=== PATIENT | female | born 1980 | race Caucasian/White ===

== ENCOUNTER 2018-07-27 09:53 | Inpatient (IN) ==
[2018-07-27] MEDS ORDERED: LIDOCAINE HCL 50 ML VIAL PERI PRN (10:00)
[2018-07-27] MEDS ORDERED: OXYTOCIN/DEXTROSE 5%-WATER 30 UNITS/500 ML BAG IV ONE (10:00)
[2018-07-27] MEDS ORDERED: NALBUPHINE HCL 10 MG/ML AMPUL IV PRN ×2 (10:00)
[2018-07-27] MEDS ORDERED: RINGER'S SOLUTION,LACTATED 1,000 ML IV ONE (10:00)
[2018-07-27] MEDS ORDERED: ONDANSETRON HCL/PF 2 MG/ML VIAL IV PRN (10:00)
[2018-07-27] MEDS ORDERED: PENICILLIN G POTASSIUM 5 MILLIONUNT in DEXTROSE 5 % IN WATER 100 ML IV ONE ×2 (12:45)
[2018-07-27] MEDS: RINGER'S SOLUTION,LACTATED 1,000 ML IV PRN ×2 (13:19→23:20)
--- NOTE | 2018-07-27 13:35 | HP ---
Chief Complaint - Chief Complaint Date of Service: 07/27/18 Time of Service: 13:00 Chief Complaint: Induction of labor History of Present Illness: The patient presented to the office today for a routine obstetrical visit. Her BP was found to be elevated in the mild range but she was asymptomatic. She reported contractions. She denied vaginal bleeding or loss of fluid. Fetus is active. Medical History (Last Updated 01/03/18 @ 08:19 by Gregoria Mendiola RN) Heartburn Onset Date: 02/22/14 Obesity Onset Date: 05/29/16 Shingles Onset Date: ~06/2013 during Migraine Onset Date: Unknown without aura Surgical History: Surgical History (Last Updated 01/03/18 @ 08:19 by Gregoria Mendiola RN) Hx laparoscopic cholecystectomy Onset Date: ~06/2007 Family History: Family History (Last Updated 01/03/18 @ 08:22 by Gregoria Mendiola RN) Mother Hypertension Grandfather , Paternal CHF (congestive heart failure) Grandmother , Paternal Ovarian cancer Family/Other Congenital heart defect Spina bifida Social History: Preferred Language Slovenian Smoking Status Former smoker (Last Updated 07/27/18 @ 11:50 by Shelly Dunbar MD) No Social History Section defined Review Of Systems (GEN) - Review of Systems EENTM: Present: No Symptoms Reported Respiratory: Present: No Symptoms Reported Cardiac: Present: No Symptoms Reported Abdominal: Present: No Symptoms Reported Genitourinary: Present: No Symptoms Reported Musculoskeletal: Present: No Symptoms Reported Neurological: Present: No Symptoms Reported Skin: Present: No Symptoms Reported Endocrine: Present: No Symptoms Reported Allergies/Adverse Reactions: Allergies Allergy/AdvReac Type Severity Reaction Status Date / Time No Known Allergies Allergy Verified 07/27/18 09:12 Home Medications: HOME MEDICATIONS Vits96/Iron Fum/Folic [ S] 1 tab PO DAILY 09/19/14 [Last Taken 09/18/14 21:00] blood sugar diagnostic strips See Dose Instructions .ROUTE .MEDSUPPLY #100 ea 05/18/18 [Last Taken Unknown] blood-glucose meter kit See Dose Instructions .ROUTE .MEDSUPPLY #1 ea 05/18/18 [Last Taken Unknown] lancets 33 gauge See Dose Instructions .ROUTE .MEDSUPPLY #100 ea 05/18/18 [Last Taken Unknown] ferrous sulfate 325 mg (65 mg iron) tablet 325 mg PO DAILY tab 06/15/18 [Last Taken Unknown] Exam - Exam Vital Signs: BP 156/96 Temperature: 36.8 Celcius HR 73 O2 sat 99% RA Constitutional: Present: Alert, Oriented x3, Cooperative, No distress Respiratory: Present: lungs clear, normal breath sounds Cardiovascular/Chest: Present: regular rate, rhythm, no murmur Abdomen: Present: soft, nontender Extremity: Present: non-tender, no calf tenderness Skin Exam: Present: normal color, warm/dry, no cyanosis Appearance: Present: appropriate appearance Eye contact: Present: cooperative, good eye contact, normal speech Thoughts: Present: normal thought pattern Diagnostic Studies: Abnormal Lab Results 07/27/18 Range/Units 10:45 U Random Total Protein 13.0 H (0-12) mg/dL Laboratory Results Ur Random Creatinine 116.5 mg/dL (60-200) 07/27/18 10:45 U Random Total Protein 13.0 mg/dL (0-12) H 07/27/18 10:45 U [place] Prot/Creat Ratio 112 mg/gm (0-199) 07/27/18 10:45 Assessment/Plan - Narrative Narrative: 38 yo at 39w0d with: 1. GHTN: BP in the mild range, asymptomatic 2. GDM: normal FSBS on admission to L&D. Discontinue FSBS 3. GBS positive: intrapartum prophylaxis Proceed with IOL with pitocin.
[2018-07-27 13:42] LABS: Cocaine Ur Negative (NEGATIVE); Urine Barbiturate Negative (NEGATIVE); Urine Benzodiazepines Negative (NEGATIVE); Urine Opiates Negative (NEGATIVE); Urine PCP Negative (NEGATIVE); Urine THC Negative (NEGATIVE)
[2018-07-27] MEDS: PENICILLIN G POTASSIUM 2.5 MILLIONUNT in DEXTROSE 5 % IN WATER 100 ML IV SCH ×4 (17:16→21:06)
[2018-07-28] MEDS: PENICILLIN G POTASSIUM 2.5 MILLIONUNT in DEXTROSE 5 % IN WATER 100 ML IV SCH ×6 (01:03→09:17)
[2018-07-28] MEDS ORDERED: ONDANSETRON HCL/PF 2 MG/ML VIAL IV PRN (09:26)
[2018-07-28] MEDS ORDERED: BUPIVACAINE HCL/0.9 % NACL/PF 250 ML EP PRN (09:26)
[2018-07-28] MEDS ORDERED: NALOXONE HCL 1 MG/1 ML SYRG IV PRN (09:26)
[2018-07-28] MEDS ORDERED: fentaNYL CITRATE/PF 50 MCG/ML AMPUL IT SCH (09:30)
--- NOTE | 2018-07-28 09:34 | PN ---
Progess Note - Interim Date: 07/28/18 Time: 07:30 Narrative: 07/28/18 09:33 Pt without complaints AROM for clear fluid FHT cat 1
[2018-07-28] MEDS ORDERED: LIDOCAINE HCL/EPINEPHRINE 20 ML VIAL ONE (10:31)
--- NOTE | 2018-07-28 11:00 | ANES ---
Anesthesia Pre Procedure Eval Vitals/Labs: Last Vital Signs Temp 36.8 C 07/27/18 13:00 Pulse 73 07/27/18 13:00 Resp 20 07/27/18 13:00 BP 156/96 H 07/27/18 13:00 Pulse Ox 97 07/27/18 13:00 HOME MEDICATIONS Vits96/Iron Fum/Folic [ S] 1 tab PO DAILY 09/19/14 [Last Taken 07/26/18 22:00] ferrous sulfate 325 mg (65 mg iron) tablet 325 mg PO DAILY tab 06/15/18 [Last Taken 07/26/18 22:00] Acetaminophen [Tylenol] 1,000 mg PO Q8H PRN 07/27/18 [Last Taken Unknown] diphenhydrAMINE HCL [Benadryl] 25 mg PO HS PRN 07/27/18 [Last Taken Unknown] Allergies/Adverse Reactions: Allergies Allergy/AdvReac Type Severity Reaction Status Date / Time No Known Allergies Allergy Verified 07/27/18 09:12 - Planned Procedure Planned Procedure: ELEV BP DELIVERY Medication List Reviewed:: Yes Allergies Verified: Yes Medical History (Last Reviewed 07/28/18 @ 11:00 by Dionte Jj CRNA) Heartburn Onset Date: 02/22/14 Obesity Onset Date: 05/29/16 Shingles Onset Date: ~06/2013 during Migraine Onset Date: Unknown without aura Surgical History (Last Reviewed 07/28/18 @ 11:00 by Dionte Jj CRNA) Hx laparoscopic cholecystectomy Onset Date: ~06/2007 Family History (Last Reviewed 07/28/18 @ 11:00 by Dionte Jj CRNA) Mother Hypertension Grandfather , Paternal CHF (congestive heart failure) Grandmother , Paternal Ovarian cancer Family/Other Congenital heart defect Spina bifida - Family Anesthesia History Family History:: no untoward family reactions to anesthesia - Airway/Neck/Teeth Within Normal Limits:: Yes Teeth Condition: intact Neck Exam: limited range of motion Mallampatti Score: 3 Thyromental (T-M) distance: > 6 cm Mandibulo Hyoid distance: > 3 cm - Respiratory Respiratory Physical: lungs clear Smoking Status: Never smoker Sleep Apnea currently treated: No Sleep Apnea by current assessment: No - Cardiovascular Tolerate Activity: Fair Heart Sounds: S1 & S2, Regular - Anesthesia Assessment and Plan ASA Class: PS, II, E Anesthesia Type Plan: Epidural Planned difficult intubation/equipment available: No
--- NOTE | 2018-07-28 11:01 | ANES ---
Post Anesthesia Assessment - Vital Signs Vitals: Last Vital Signs Temp 36.8 C 07/27/18 13:00 Pulse 73 07/27/18 13:00 Resp 20 07/27/18 13:00 BP 156/96 H 07/27/18 13:00 Pulse Ox 97 07/27/18 13:00 Airway Patency: Normal - Mental Status Level Of Consciousness: Awake - Pain Level Pain Score: 2 - N/V Assessment Nausea/Vomiting Presence: None Dehydration:: No
--- NOTE | 2018-07-28 11:01 | ANES ---
Post Anesthesia Discharge - Transfer of Care Transfer of Care handoff given to nurse: Yes - Anesthesia Post Op Note Anesthesia Post Op Note: Care transferred to OB RN
[2018-07-28] MEDS ORDERED: GLYCERIN/WITCH HAZEL LEAF 40 APPL BOX TP PRN (11:50)
[2018-07-28] MEDS ORDERED: SENNOSIDES 8.6 MG TABLET PO PRN (11:50)
[2018-07-28] MEDS ORDERED: BISACODYL 10 MG SUPP.RECT RC PRN (11:50)
[2018-07-28] MEDS ORDERED: HYDROcodone/ACETAMINOPHEN 1 EACH TABLET PO PRN (11:50)
[2018-07-28] MEDS ORDERED: diphenhydrAMINE HCL 25 MG CAPSULE PO PRN (11:50)
[2018-07-28] MEDS ORDERED: OXYTOCIN/DEXTROSE 5%-WATER 30 UNITS/500 ML BAG IV ONE (11:50)
[2018-07-28] MEDS ORDERED: HYDROCORTISONE 30 APPL TUBE TP PRN (11:50)
[2018-07-28] MEDS ORDERED: BENZOCAINE/MENTHOL 81 SPRAY CAN TP PRN (11:50)
--- NOTE | 2018-07-28 12:05 | OR ---
Operative Report - Dictated Report Narrative: Date of delivery: 07/28/2018 Time of delivery: 1136 weight: 3275 grams APGARS 8/9 Procedure: normal spontaneous vaginal delivery Description of the procedure: The patient is a 38 year old @ 39w 1d who presented to labor and delivery for a medical induction of labor due to GDM, GHTN, and AMA. She was induced with pitocin and AROM. She progressed to complete dilation after receiving an epidural. She delivered a viable female infant in the direct OA presentation. There was a nuchal cord that was reduced after delivery. Cord clamping was delayed for 60 seconds. The placenta was delivered by expression and appeared intact. There were no lacerations noted. EBL: 50 mL Lacerations: none Complications: none Definition: * The number of deliveries resulting in a live the patient experienced prior to current hospitalization * The previous delivery of live twins or any live multiple gestation is considered one live event. *If primagravida or nulliparous is documented select zero for the number of previous live births. Live Births: 3
[2018-07-28] MEDS: IBUPROFEN 800 MG TABLET PO PRN (20:06)
[2018-07-29] MEDS: DOCUSATE SODIUM 100 MG CAPSULE PO SCH ×3 (00:34→21:02)
[2018-07-29] MEDS: HYDROcodone/ACETAMINOPHEN 1 EACH TABLET PO PRN ×2 (01:27→09:33)
[2018-07-29] MEDS: IBUPROFEN 800 MG TABLET PO PRN ×3 (04:06→17:21)
--- NOTE | 2018-07-29 11:12 | PN ---
Subjective - Date and Time Seen Date: 07/29/18 Time: 11:10 Subjective Narrative: Pt without complaints Objective Objective Narrative: See vital signs - Review of Systems Generalized/Overall Review: Reports: No Symptoms Reported Misc: All systems neg except as marked - Vitals Vitals: Last Vital Signs Temp 36.2 C 07/29/18 08:00 Pulse 63 07/29/18 08:00 Resp 20 07/29/18 08:00 BP 133/88 07/29/18 08:00 Pulse Ox 100 07/29/18 08:00 - Exam Constitutional: Present: Alert, Oriented x3, Cooperative, No distress Abdomen: Present: soft, nontender, nondistended - fundus is firm Extremity: Present: non-tender, no calf tenderness Skin Exam: Present: normal color, warm/dry, no cyanosis Appearance: Present: appropriate appearance Eye contact: Present: cooperative Thoughts: Present: normal thought pattern
[2018-07-30] MEDS: IBUPROFEN 800 MG TABLET PO PRN ×2 (04:22→12:40)
[2018-07-30 09:04] VITALS: BP 124/80
[2018-07-30] MEDS: DOCUSATE SODIUM 100 MG CAPSULE PO SCH (09:04)
--- NOTE | 2018-07-30 09:37 | PN ---
Subjective - Date and Time Seen Date: 07/30/18 Time: 09:00 Subjective Narrative: Pt without complaints Objective Objective Narrative: See vital signs - Review of Systems Generalized/Overall Review: Reports: No Symptoms Reported Misc: All systems neg except as marked - Vitals Vitals: Last Vital Signs Temp 36.6 C 07/30/18 08:30 Pulse 79 07/30/18 08:30 Resp 20 07/30/18 08:30 BP 124/80 07/30/18 08:30 Pulse Ox 99 07/30/18 08:30 - Exam Constitutional: Present: Alert, Oriented x3, Cooperative, No distress Abdomen: Present: soft, nontender, nondistended Extremity: Present: non-tender, no calf tenderness Skin Exam: Present: normal color, warm/dry, no cyanosis Appearance: Present: appropriate appearance Eye contact: Present: cooperative Assessment/Plan Plan Narrative: PPD 2 s/p Doing well Discharge today
== END 2018-07-30 13:30 | disposition home or self-care (01) | DRG 806 ==
LOC: OB 09:53
PROVIDERS: ADMIT Obstetrics & Gynecology; ATTEND Obstetrics & Gynecology
CPT/HCPCS: 59025; 80307; 82570; 84155; 84156